=== PATIENT | male | born 1960 | race Caucasian/White ===

== ENCOUNTER 2023-09-02 08:59 | Emergency (ER) | payer OTHER ==
[2023-09-02 09:35] LABS: BASOPHILS # (AUTO) 0.1 10^3/uL (0.0-0.1); BASOPHILS % (AUTO) 0.5 %; EOSINOPHILS # (AUTO) 0.2 10^3/uL (0.0-0.7); EOSINOPHILS % (AUTO) 1.4 %; HCT - HEMATOCRIT 48.6 % (42.0-52.0); HGB - HEMOGLOBIN 15.7 g/dL (14.0-18.0); LYMPHOCYTES # (AUTO) 1.7 10^3/uL (1.5-3.5); LYMPHOCYTES % (AUTO) 12.8 %; MEAN CORPUSCULAR HGB CONC 32.3 g/dL (32.0-36.0); MEAN CORPUSCULAR VOLUME 89.8 fL (80.0-94.0); MEAN PLATELET VOLUME 10.3 fL (7.4-11.4); MONOCYTES % (AUTO) 7.3 %; NEUTROPHILS # (AUTO) 10.3 10^3/uL (1.5-6.6); NEUTROPHILS % (AUTO) 77.6 %; PLT - PLATELET COUNT 257 10^3/uL (130-450); RED BLOOD COUNT 5.41 10^6/uL (4.70-6.10); RED CELL DISTRIBUTION WIDTH 12.6 % (12.0-15.0); WHITE BLOOD COUNT 13.3 x10^3/uL (4.8-10.8)
[2023-09-02 09:38] LABS: BILIRUBIN,URINE NEGATIVE (NEGATIVE); GLUCOSE, URINE (UA) NEGATIVE (NEGATIVE); KETONES,URINE (UA) NEGATIVE (NEGATIVE); LEUKOCYTE ESTERASE, URINE NEGATIVE (NEGATIVE); NITRITE,URINE NEGATIVE (NEGATIVE); OCCULT BLOOD,URINE NEGATIVE (NEGATIVE); PH,URINE 5.5 PH (5.0-7.5); PROTEIN,URINE NEGATIVE (NEGATIVE); UROBILINOGEN,URINE 0.2 (NORMAL) E.U./dL (NORMAL)
[2023-09-02 09:39] LABS: CLARITY,URINE CLEAR (CLEAR)
[2023-09-02 09:49] LABS: ALBUMIN 4.8 g/dL (3.2-5.5); ALBUMIN/GLOBULIN RATIO 1.5 (1.0-2.2); ALKALINE PHOSPHATASE 57 IU/L (42-121); ALT ALANINE AMINOTRANSFERASE 15 IU/L (10-60); AST ASPARTATE AMINOTRANSFERASE 15 IU/L (10-42); BILIRUBIN,TOTAL 0.6 mg/dL (0.2-1.0); BUN - BLOOD UREA NITROGEN 15 mg/dL (6-20); CALCIUM 10.9 mg/dL (8.5-10.3); CARBON DIOXIDE - CO2 31 mmol/L (21-32); CHLORIDE 100 mmol/L (101-111); CREATININE 0.8 mg/dL (0.6-1.3); GFR - MDRD 98 (>89); GLUCOSE 105 mg/dL (74-104); POTASSIUM 4.2 mmol/L (3.5-4.5); SODIUM 137 mmol/L (135-145); TOTAL PROTEIN 7.9 g/dL (6.4-8.9)
[2023-09-02 09:52] LABS: LIPASE < 10 U/L (11-82)
--- NOTE | 2023-09-02 09:58 | ED Physician Documentation ---
PD HPI ABD PAIN - Stated complaint Stated Complaint: ABD PX - Chief complaint Chief Complaint: Abd Pain - History obtained from History obtained from: Patient - History of Present Illness Timing - onset: How many days ago (3-4) Timing - duration: Days Timing - details: Gradual onset, Still present Quality: Cramping, Aching, Pain Location: LLQ Radiation: No: Left flank Associated symptoms: Nausea. No: Fever, Vomiting, Diarrhea, Constipation, Dysuria Similar symptoms before: Diagnosis (has had this a few times in the past, Dx as diverticulitis and treated with abx/OTC meds without hospitalization in the past.) Review of Systems Constitutional: denies: Fever, Chills GI: reports: Abdominal Pain. denies: Vomiting, Diarrhea, Bloody / black stool PD PAST MEDICAL HISTORY - Past Medical History Past Medical History: Yes Cardiovascular: High cholesterol Respiratory: Asthma Neuro: CVA Endocrine/Autoimmune: Type 2 diabetes GI: Diverticulitis : None HEENT: None Psych: None Musculoskeletal: Chronic back pain Derm: None - Past Surgical History Past Surgical History: Yes General: Cholecystectomy Ortho: Other Neuro: Craniotomy - Present Medications Home Medications: Ambulatory Orders Medication Instructions Recorded Confirmed Amox/Clav 875/125 [Augmentin] 1 each PO BID #20 tablet 09/02/23 Aspirin EC [Ecotrin] 81 mg PO DAILY 09/02/23 09/02/23 Atorvastatin [Lipitor] 10 mg ORAL DAILY 09/02/23 09/02/23 Gabapentin [Neurontin] 100 mg PO HS 09/02/23 09/02/23 Meloxicam [Mobic] 7.5 mg PO BID 10 Days #20 tablet 09/02/23 Ondansetron Odt [Zofran] 4 mg TL Q6H PRN #10 tablet 09/02/23 metFORMIN [Glucophage] 500 mg PO BIDWM 09/02/23 09/02/23 - Allergies Allergies/Adverse Reactions: Allergies Allergy/AdvReac Type Severity Reaction Status Date / Time No Known Drug Allergies Allergy Verified 09/02/23 09:13 - Social History Does the pt smoke?: No Smoking Status: Never smoker Does the pt drink ETOH?: No Does the pt have substance abuse?: No - Immunizations Immunizations are current?: Yes - POLST Patient has POLST: No PD ED PE NORMAL - Vitals Vital signs reviewed: Yes - General General: Alert and oriented X 3, No acute distress, Well developed/nourished - Cardiac Cardiac: RRR, No murmur - Respiratory Respiratory: No respiratory distress, Clear bilaterally - Abdomen Abdomen: Normal bowel sounds, Soft, Non distended, No organomegaly, Other (tender left mid abdomen with some local guarding not no referred, percussion, nor rebound tenderness. ) - Back Back: No CVA TTP - Derm Derm: Normal color, Warm and dry Results - Vitals Vitals: Vital Signs - 24 hr 09/02/23 09/02/23 09:13 10:54 Temperature 36.4 C L 36.5 C Heart Rate 74 75 Respiratory 16 18 Rate Blood Pressure 146/75 H 147/79 H O2 Saturation 98 99 Oxygen O2 Source Room air - Labs Labs: Laboratory Tests 09/02/23 09/02/23 09/02/23 09:26 09:29 09:29 WBC 13.3 H RBC 5.41 Hgb 15.7 Hct 48.6 MCV 89.8 MCH 29.0 MCHC 32.3 RDW 12.6 Plt Count 257 MPV 10.3 Neut # (Auto) 10.3 H Lymph # (Auto) 1.7 [place] # (Auto) 1.0 Eos # (Auto) 0.2 Baso # (Auto) 0.1 Absolute Nucleated RBC 0.00 Nucleated RBC % 0.0 Sodium 137 Potassium 4.2 Chloride 100 L Carbon Dioxide 31 Anion Gap 6.0 BUN 15 Creatinine 0.8 Estimated GFR (MDRD) 98 Glucose 105 H Calcium 10.9 H Total Bilirubin 0.6 AST 15 ALT 15 Alkaline Phosphatase 57 Total Protein 7.9 Albumin 4.8 Globulin 3.1 Albumin/Globulin Ratio 1.5 Lipase < 10 L Urine Color YELLOW Urine Clarity CLEAR Urine pH 5.5 Ur Specific [place] 1.025 Urine Protein NEGATIVE Urine Glucose (UA) NEGATIVE Urine Ketones NEGATIVE Urine Occult Blood NEGATIVE Urine Nitrite NEGATIVE Urine Bilirubin NEGATIVE Urine Urobilinogen 0.2 (NORMAL) Ur Leukocyte Esterase NEGATIVE Ur Microscopic Review NOT INDICATED Urine Culture Comments NOT INDICATED PD Medical Decision Making - ED course Complexity details: reviewed results (WBC 13K. Abd exam is c/w likely uncomplicated diverticulitis. Shared decision with pt to not do imaging, which he says is how typically treated by his PMD (just given Rx outpt). This would be in accord with GI guidelines. ), considered differential, d/w patient Departure - Departure Disposition: 01 Home, Self Care Clinical Impression: Left lower quadrant abdominal pain, Acute diverticulitis Condition: Stable Record reviewed to determine appropriate education?: Yes Instructions: ED Diverticulitis Prescriptions: Amox/Clav 875/125 [Augmentin] 1 each PO BID #20 tablet Meloxicam [Mobic] 7.5 mg PO BID 10 Days #20 tablet Ondansetron Odt [Zofran] 4 mg TL Q6H PRN #10 tablet PRN Reason: Nausea / Vomiting Comments: We can treat this as diverticulitis. It does not sound "complicated" which means either perforation or abscess with regard to diverticulitis. Current guidelines and thought process are for to be a initially inflammatory process with some potential encroachment of germs into the wall leading to infection as well. The treatment is commonly a combination of some anti- inflammatories with or without antibiotics, of which I sent scripts to the [facility]. Stay well-hydrated. Diet as tolerated. Add Tylenol every 4-6 hours if needed for pains. Add ondansetron if needed for nausea. I would anticipate improvement over the next 2 to 3 days and resolution by 3 to 5 days. Follow-up if worsening or persisting symptoms. I sent your prescriptions to [facility] pharmacy. Forms: PCP List Discharge Date/Time: 09/02/23 10:55
[2023-09-02] MEDS: AMOX/CLAV 875 MG/125 MG TABLET PO STA (10:48)
[2023-09-02] MEDS: KETOROLAC 15 MG/ML VIAL IVP STA (10:48)
[2023-09-02] MEDS: ONDANSETRON ODT 4 MG TABLET TL STA (10:48)
[2023-09-02 11:01] VITALS: BP 147/79; O2SAT 99
== END 2023-09-02 10:55 | disposition home or self-care (01) ==
LOC: ED 08:59
DX: K57.92 Diverticulitis of intestine, part unspecified, without perforation or abscess without bleeding (principal); E78.00 Pure hypercholesterolemia, unspecified; E11.9 Type 2 diabetes mellitus without complications; Z79.82 Long term (current) use of aspirin; Z79.899 Other long term (current) drug therapy; Z79.84 Long term (current) use of oral hypoglycemic drugs
CPT/HCPCS: 36415; 80053; 81003; 83690; 85025; 96374; 99283; A9270; Q0162; 81001; 87086